=== PATIENT | male | born 1995 | race African-American/Black ===

== ENCOUNTER 2017-07-06 12:44 | Emergency (ER) | payer OTHER ==
[~2017-07-06] VITALS: Ht 167.6 cm; Wt 54.0 kg
[2017-07-06 12:52] VITALS: BP 126/66; PULSE 83; RESP 14; TEMP 98.6; O2SAT 99
[2017-07-06] MEDS ORDERED: IBUP1TAB7 PO (14:36)
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
[2017-07-06] MEDS ORDERED: IBUPROFEN 800 MG TAB PO ONE (14:45)
== END 2017-07-06 14:50 | disposition home or self-care (01) ==
LOC: NEPD 12:44
DX: S00.83XA Contusion of other part of head, initial encounter (principal); V89.2XXA Person injured in unspecified motor-vehicle accident, traffic, initial encounter
CPT/HCPCS: 99283